=== PATIENT | female | born 1985 | race Caucasian/White ===

== ENCOUNTER 2019-02-13 16:11 | Outpatient (CLI) | payer BC | END 2019-02-13 21:16 | disposition home or self-care (01) | LOC: SUS 16:11 | PROVIDERS: ATTEND Family Medicine | DX: I82.402 Acute embolism and thrombosis of unspecified deep veins of left lower extremity (principal) | CPT/HCPCS: 93971 ==

== ENCOUNTER 2019-12-14 11:14 | Outpatient (CLI) | payer BC, MEDICAID | END 2019-12-14 19:53 | disposition home or self-care (01) | LOC: SUS 11:14 | PROVIDERS: ATTEND Family Medicine | DX: R22.42 Localized swelling, mass and lump, left lower limb (principal) | CPT/HCPCS: 93971 ==